=== PATIENT | male | born 1955 | race Hispanic/Latino ===

== ENCOUNTER → 2017-04-12 | Outpatient (CLI) | payer OTHER ==
[~2017-04-12] MED LIST: DORZ10DR10 OU; FISH OIL PO; MULTIVITAMIN PO; PANT40TA PO; SIMV20TA2 PO; TAMS-1 PO; TELM80TA7 PO; TRAV5DRO OU; [UNRECOGNIZED DRUG - OTHER] PO
== END | disposition home or self-care (01) ==
LOC: OIH 10:10
PROVIDERS: ATTEND Internal Medicine
DX: N20.0 Calculus of kidney (principal); M24.812 Other specific joint derangements of left shoulder, not elsewhere classified
CPT/HCPCS: 73030; 74176

== ENCOUNTER 2022-10-28 22:28 | Observation (INO) | payer OTHER ==
[~2022-10-28] VITALS: Ht 172.7 cm; Wt 107.5 kg
[~2022-10-28 22:28] MED LIST changes: +SIMV-343 PO; -SIMV20TA2 PO; +TELM80TA10 PO; -TELM80TA7 PO
[2022-10-28 23:04] LABS: BASOPHILS # (AUTO) 0.05 K/uL (0.00-0.20); BASOPHILS % (AUTO) 0.8 % (0.0-5.0); EOSINOPHILS # (AUTO) 0.23 K/uL (0.00-0.70); EOSINOPHILS % (AUTO) 3.7 % (0.0-8.0); HEMATOCRIT 39.8 % (42-54); IMMATURE GRANULOCYTE ABSOLUTE 0.01 K/uL (0-1); LYMPHOCYTES # (AUTO) 2.2 K/uL (1.0-4.8); LYMPHOCYTES % (AUTO) 34.4 % (21.0-51.0); MEAN CORPUSCULAR HEMOGLOBIN 32.6 pg (27.0-33.0); MEAN CORPUSCULAR HGB CONC 36.2 g/dL (32.0-36.0); MONOCYTES # (AUTO) 0.6 K/uL (0.1-1.0); MONOCYTES % (AUTO) 9.2 % (3.0-13.0); NEUTROPHILS # (AUTO) 3.3 K/uL (1.8-7.7); NEUTROPHILS % (AUTO) 51.7 % (40.0-77.0); PLATELET COUNT (AUTO) 146 K/uL (130-400); RED BLOOD CELL COUNT(AUTO) 4.42 MIL/uL (4.50-6.20); RED CELL DISTRIBUTION WIDTH 12.6 % (11.0-15.5); WHITE BLOOD COUNT (AUTO) 6.3 K/uL (4.8-10.8)
[2022-10-28 23:15] LABS: POTASSIUM 3.7 mmol/L (3.5-5.1)
[2022-10-28 23:20] LABS: BILIRUBIN,TOTAL 0.5 mg/dL (0.2-1.0); TOTAL PROTEIN, SERUM 7.4 g/dL (6.0-8.3)
[2022-10-28 23:25] LABS: B-TYPE NATRIURETIC PEPTIDE 40 pg/mL (0-100)
[2022-10-29] VITALS (7 sets, daily range): BP systolic 105–129; BP diastolic 63–79; PULSE 65–71; RESP 16–20; O2SAT 98
[2022-10-29] MEDS ORDERED: ASPIRIN 81MG CHEW TAB PO ONE
[2022-10-29] MEDS ORDERED: PANT40GR PO (02:23)
[2022-10-29] MEDS ORDERED: SIMV40TA59 PO (02:23)
[2022-10-29] MEDS ORDERED: FLEC100T3 PO (02:23)
[2022-10-29] MEDS ORDERED: LATA2.5D14 OP (02:23)
[2022-10-29] MEDS ORDERED: BRIM5DRO21 OP (02:23)
[2022-10-29] MEDS ORDERED: TELM20TA8 PO (02:23)
[2022-10-29] MEDS ORDERED: MULT-1203 PO (02:23)
[2022-10-29] MEDS ORDERED: DEXT350P5 PO (02:23)
[2022-10-29] MEDS ORDERED: MECO10005 PO (02:23)
[2022-10-29] MEDS ORDERED: CARB15DR3 OP (02:23)
[2022-10-29] MEDS ORDERED: ASPI-1146 PO (02:23)
[2022-10-29] MEDS ORDERED: PREVAGEN PO (02:23)
[2022-10-29] MEDS ORDERED: METO-391 PO (02:23)
[2022-10-29] MEDS ORDERED: TAMS-1 PO (02:24)
[2022-10-29 05:00] LABS: BASOPHILS # (AUTO) 0.04 K/uL (0.00-0.20); BASOPHILS % (AUTO) 0.7 % (0.0-5.0); EOSINOPHILS # (AUTO) 0.26 K/uL (0.00-0.70); EOSINOPHILS % (AUTO) 4.4 % (0.0-8.0); HEMATOCRIT 37.7 % (42-54); IMMATURE GRANULOCYTE ABSOLUTE 0.02 K/uL (0-1); LYMPHOCYTES % (AUTO) 34.8 % (21.0-51.0); MEAN CORPUSCULAR HEMOGLOBIN 32.2 pg (27.0-33.0); MEAN CORPUSCULAR HGB CONC 34.5 g/dL (32.0-36.0); MEAN CORPUSCULAR VOLUME 93.3 fL (79-99); MONOCYTES # (AUTO) 0.6 K/uL (0.1-1.0); MONOCYTES % (AUTO) 9.4 % (3.0-13.0); NEUTROPHILS % (AUTO) 50.4 % (40.0-77.0); PLATELET COUNT (AUTO) 146 K/uL (130-400); RED BLOOD CELL COUNT(AUTO) 4.04 MIL/uL (4.50-6.20); RED CELL DISTRIBUTION WIDTH 12.7 % (11.0-15.5); WHITE BLOOD COUNT (AUTO) 5.9 K/uL (4.8-10.8)
[2022-10-29 05:22] LABS: ALBUMIN 3.6 g/dL (3.5-5.0); BILIRUBIN,TOTAL 0.4 mg/dL (0.2-1.0); CREATININE 0.9 mg/dL (0.5-1.5); POTASSIUM 3.8 mmol/L (3.5-5.1); TOTAL PROTEIN, SERUM 6.9 g/dL (6.0-8.3)
[2022-10-29] MEDS ORDERED: TELMISARTAN 20 MG PO PRN (06:30)
[2022-10-29] MEDS ORDERED: HOME MEDICATION 1 EACH OP PRN (07:00)
[2022-10-29] MEDS ORDERED: LOSARTAN 25 MG TABLET PO PRN (07:30)
[2022-10-29] MEDS: FLECAINIDE ACETATE 100 MG TABLET PO SCH ×2 (07:30→15:43)
[2022-10-29] MEDS: METOPROLOL SUCCINATE 50 MG TAB.SR.24H PO SCH ×2 (08:24→10:19)
[2022-10-29] MEDS ORDERED: CYANOCOBALAMIN (VITAMIN B-12) 1,000 MCG TABLET PO SCH (09:00)
[2022-10-29] MEDS ORDERED: ASPIRIN 81 MG EC TAB PO SCH ×2 (09:00)
[2022-10-29] MEDS ORDERED: MECOBALAMIN PO SCH (09:00)
[2022-10-29] MEDS ORDERED: PANTOPRAZOLE 40 MG TAB DR PO SCH (09:00)
[2022-10-29] MEDS ORDERED: NON-FORMULARY MEDICATION 1 EACH (Pantoprazole Sodium 40 MG) PO SCH (09:00)
[2022-10-29] MEDS ORDERED: ASPIRIN 81MG CHEW TAB PO SCH (09:00)
[2022-10-29] MEDS ORDERED: NON-FORMULARY MEDICATION 1 EACH (Multivitamin (Multi Vitamin Daily) 1 EACH) PO SCH (09:00)
[2022-10-29] MEDS ORDERED: MULTIVITAMIN TABLET PO SCH (09:00)
[2022-10-29] MEDS ORDERED: TAMSULOSIN HCL 0.4 MG CAP.ER.24H PO SCH (21:00)
[2022-10-29] MEDS ORDERED: SIMVASTATIN 20 MG TABLET PO SCH (21:00)
[2022-10-29] MEDS ORDERED: LATANOPROST 2.5 ML DROPS OP SCH (21:00)
[2022-10-29] MEDS ORDERED: NON-FORMULARY MEDICATION 1 EACH (Simvastatin (Zocor) 20 MG) PO SCH (21:00)
== END 2022-10-29 22:05 | disposition home or self-care (01) ==
LOC: EDH 22:28 → EDHIP 10-29 00:20 → INTOOBSV 10-29 00:20 → 3DH 10-29 00:54
PROVIDERS: ADMIT Internal Medicine; ATTEND Internal Medicine
DX: R07.89 Other chest pain (principal); I24.9 Acute ischemic heart disease, unspecified; I10 Essential (primary) hypertension; K21.9 Gastro-esophageal reflux disease without esophagitis; I25.10 Atherosclerotic heart disease of native coronary artery without angina pectoris; N40.0 Benign prostatic hyperplasia without lower urinary tract symptoms; M47.812 Spondylosis without myelopathy or radiculopathy, cervical region; M47.816 Spondylosis without myelopathy or radiculopathy, lumbar region; E78.00 Pure hypercholesterolemia, unspecified; J84.10 Pulmonary fibrosis, unspecified; Z79.899 Other long term (current) drug therapy; Z95.0 Presence of cardiac pacemaker; Z95.5 Presence of coronary angioplasty implant and graft; Z79.82 Long term (current) use of aspirin; Z90.49 Acquired absence of other specified parts of digestive tract
CPT/HCPCS: 99285; 83735; 84484 ×4; 80053 ×2; 83880; 85025 ×2; 36415 ×2; 71045; 93005; 82550 ×3; 83874 ×3; 85378; 93306; G0378 ×6